=== PATIENT | female | born 1945 ===

== ENCOUNTER 2017-08-12 06:07 | Day surgery (SDC) | payer MEDICARE ==
[2017-08-12] MEDS ORDERED: IV LACTATED RINGERS SOLUTION 1,000 ML BAG IV ONE (06:08)
[2017-08-12] MEDS ORDERED: BALANCED SALT IRRIG SOLN COMB1 500 ML, EPINEPHRINE-PF 1:1000 1 MG IO ONE ×2 (07:00)
[2017-08-12] MEDS ORDERED: TETRACAINE HCL 0.5% OPHT DROP 2 ML BOTTLE ONE ×2 (07:16→09:20)
[2017-08-12] MEDS ORDERED: CIPROFLOXACIN 0.3% OPHT DROP 2.5 ML BOTTLE ONE (07:17)
[2017-08-12] MEDS ORDERED: FLURBIPROFEN 0.03% OPHT DROP 2.5 ML BOTTLE ONE (07:17)
[2017-08-12] MEDS ORDERED: CYCLOPENTOLATE 1% OPHT DROP 2 ML BOTTLE ONE (07:17)
[2017-08-12] MEDS ORDERED: PHENYLEPHRINE 2.5% OPHT DROP 2 ML BOTTLE ONE (07:20)
[2017-08-12 07:40] LABS: *BILIRUBIN,URIN NEGATIVE (NEGATIVE); *BLOOD, URINE NEGATIVE (NEGATIVE); *CLARITY,URINE CLEAR (CLEAR); *COLOR,URINE YELLOW (YELLOW); *KETONES,URINE NEGATIVE (NEGATIVE); *PROTEIN,URINE NEGATIVE (NEGATIVE); *UROBILINOGEN,URINE 0.2 E.U./dl (NORMAL); LEUKOCYTE ESTERASE ,URINE TRACE (NEGATIVE); NITRITE, URINE NEGATIVE (NEGATIVE); UGLUCOSE NEGATIVE (NEGATIVE)
[2017-08-12 07:43] LABS: BASOPHILS # (AUTO) 0.1 K/uL (0.0-8.0); BASOPHILS % (AUTO) 0.9 % (0.0-2.0); EOSINOPHILS # (AUTO) 0.2 K/uL (0.0-0.7); EOSINOPHILS % (AUTO) 4.2 % (0.0-7.0); HEMATOCRIT 39.3 % (31.2-41.9); HEMOGLOBIN 13.1 g/dL (10.9-14.3); LYMPHOCYTES # (AUTO) 2.8 K/uL (20.0-40.0); LYMPHOCYTES % (AUTO) 49.5 % (20.5-51.5); MEAN CORPUSCULAR HEMOGLOBIN 29.2 uug (24.7-32.8); MEAN CORPUSCULAR HGB CONC 33 g/dL (32.3-35.6); MEAN CORPUSCULAR VOLUME 87.7 fL (75.5-95.3); MONOCYTES # (AUTO) 0.5 K/uL (2.0-10.0); MONOCYTES % (AUTO) 8.4 % (0.0-11.0); NEUTROPHILS # (AUTO) 2.1 K/uL (1.8-8.9); PLATELET COUNT (AUTO) 176 K/uL (179-408); RED BLOOD CELL COUNT(AUTO) 4.48 MIL/uL (3.63-4.92); WHITE BLOOD COUNT (AUTO) 5.7 K/uL (3.8-11.8)
[2017-08-12 07:50] LABS: BACTERIA,URINE FEW /HPF (NONE SEEN); RBC,URINE 0-3 /HPF (0-3); SQUAMOUS EPITHELIAL CELL,UR FEW /HPF (NONE SEEN)
[2017-08-12 07:53] LABS: CREATININE 0.8 mg/dL (0.6-1.3)
[2017-08-12 07:58] LABS: BILIRUBIN,TOTAL 0.3 mg/dL (0.2-1.0); TOTAL PROTEIN, SERUM 7.3 g/dL (6.4-8.2)
[2017-08-12] MEDS ORDERED: LIDOCAINE HCL-MPF 1% 5 ML VIAL ONE (09:20)
[2017-08-12] MEDS ORDERED: EPINEPHRINE 1 MG/1 ML AMP ONE (09:20)
[2017-08-12] MEDS ORDERED: NEO/POLYMYX B/DEXAME OPHT OINT 3.5 GM TUBE ONE (09:20)
[2017-08-12] MEDS ORDERED: BALANCED SALT IRRIG SOLN COMB2 15 ML IRRIG.SOLN ONE (09:21)
[2017-08-12] MEDS ORDERED: HYALURONATE SODIUM 8.5 MG/0.85 ML DISP.SYRIN ONE (09:21)
[2017-08-12] MEDS ORDERED: BUPIVACAINE PF 0.5% 30 ML VIAL ONE (09:21)
[2017-08-12] MEDS ORDERED: MIDAZOLAM HCL 2 MG/2 ML VIAL ONE (10:10)
[2017-08-12] MEDS ORDERED: FENTANYL CITRATE 100 MCG/2 ML AMPUL ONE (10:10)
[2017-08-12] MEDS ORDERED: ACETAMINOPHEN 325 MG TABLET ONE (11:41)
== END 2017-08-12 12:05 | disposition home or self-care (01) ==
LOC: DS 06:07 → EDBD 06:07 → DS 12:05
PROVIDERS: ATTEND Dermatology MOHS-Micrographic Surgery
DX: H25.89 Other age-related cataract (principal); K21.9 Gastro-esophageal reflux disease without esophagitis
CPT/HCPCS: 36415; 66984; 71045; 80053; 81001; 85025; 85730; 93005; A4663; J0171 ×2; J2250; J3010; J3490 ×2; J7120 ×2; J7321; V2632

== ENCOUNTER 2017-08-19 09:37 | Day surgery (SDC) | payer MEDICARE, BC ==
[~2017-08-19 09:37] MED LIST: BALANCED SALT IRRIG SOLN COMB1 500 ML, EPINEPHRINE-PF 1:1000 1 MG IO ONE
[2017-08-19] MEDS ORDERED: IV LACTATED RINGERS SOLUTION 1,000 ML BAG IV ONE (09:38)
[2017-08-19] MEDS ORDERED: ONDANSETRON 4 MG/2 ML VIAL IV ONE (09:38)
[2017-08-19] MEDS ORDERED: TETRACAINE HCL 0.5% OPHT DROP 2 ML BOTTLE ONE ×2 (09:46→09:50)
[2017-08-19] MEDS ORDERED: FLURBIPROFEN 0.03% OPHT DROP 2.5 ML BOTTLE ONE (09:46)
[2017-08-19] MEDS ORDERED: CYCLOPENTOLATE 1% OPHT DROP 2 ML BOTTLE ONE (09:47)
[2017-08-19] MEDS ORDERED: CIPROFLOXACIN 0.3% OPHT DROP 2.5 ML BOTTLE ONE (09:47)
[2017-08-19] MEDS ORDERED: PHENYLEPHRINE 2.5% OPHT DROP 2 ML BOTTLE ONE (09:47)
[2017-08-19] MEDS ORDERED: NEO/POLYMYX B/DEXAME OPHT OINT 3.5 GM TUBE ONE (09:49)
[2017-08-19] MEDS ORDERED: PILOCARPINE 1% OPHT DROP 15 ML BOTTLE ONE (09:49)
[2017-08-19] MEDS ORDERED: BUPIVACAINE PF 0.5% 30 ML VIAL ONE (09:50)
[2017-08-19] MEDS ORDERED: LIDOCAINE HCL-MPF 1% 5 ML VIAL ONE (09:50)
[2017-08-19] MEDS ORDERED: HYALURONATE SODIUM 8.5 MG/0.85 ML DISP.SYRIN ONE (09:50)
[2017-08-19] MEDS ORDERED: EPINEPHRINE 1 MG/1 ML AMP ONE (09:50)
[2017-08-19] MEDS ORDERED: BALANCED SALT IRRIG SOLN COMB2 15 ML IRRIG.SOLN ONE (09:50)
[2017-08-19] MEDS ORDERED: FENTANYL CITRATE 100 MCG/2 ML AMPUL ONE (10:15)
[2017-08-19] MEDS ORDERED: MIDAZOLAM HCL 2 MG/2 ML VIAL ONE (10:15)
[2017-08-19] MEDS ORDERED: BALANCED SALT IRRIG SOLN COMB1 500 ML ONE (10:21)
[2017-08-19] MEDS ORDERED: ACETAMINOPHEN 325 MG TABLET ONE (11:45)
== END 2017-08-19 13:05 | disposition home or self-care (01) ==
LOC: DS 09:37
PROVIDERS: ATTEND Dermatology MOHS-Micrographic Surgery
DX: H25.89 Other age-related cataract (principal)
CPT/HCPCS: A4663; J0171; J2250; J2405; J3010; J3490; J3590; J7120; J7321; V2632